=== PATIENT | female | born 1970 | race Caucasian/White ===

== ENCOUNTER → 2022-09-21 16:14 | Outpatient (BNVA) | payer BC, SELFPAY | PROVIDERS: Family Provider Nurse Practitioner Family; Visit Provider Registered Nurse Neonatal Intensive Care | DX: S69.91XA Unspecified injury of right wrist, hand and finger(s), initial encounter (principal); W19.XXXA Unspecified fall, initial encounter | CPT/HCPCS: 73110 ==

== ENCOUNTER 2023-12-09 06:56 | Outpatient (CLI) | payer BC, SELFPAY | END 2023-12-09 06:57 | disposition home or self-care (01) | LOC: LAB 06:57 | PROVIDERS: Family Provider Nurse Practitioner Family; Visit Provider Internal Medicine | DX: E16.2 Hypoglycemia, unspecified (principal) | CPT/HCPCS: 36415; 82533 ==

== ENCOUNTER 2024-01-11 10:24 | Outpatient (CLI) | payer BC, SELFPAY ==
--- NOTE | 2024-01-11 10:36 | MM_ITS ---
WS: [email or web address] VIEWS: MLO, CC, and ML views both breasts. 3D digital tomosynthesis is also included in this exam. S pot compression view with tomography of the RIGHT breast in the MLO projection was also included. Eve ast implant displacement MLO and cc views were also included. No comparisons at this time Findings: There was no sign of mass, architectural distortion or suspicious calcification in either breast. The re are scattered areas of fibroglandular density. Regional ultrasound of the upper outer quadrant of the RIGHT breast would be indicated for further work-up. MM/[place] [id number] Impression: BI-RADS: 0-Incomplete: Need additional imaging evaluation FOLLOW-UP: See Report This mammogram was also analyzed by the Computer Aided Detection System R2 Imag e Film Color Tester.
--- NOTE | 2024-01-11 10:36 | US_ITS ---
WS: [email or web address] Exam: US breast RT limited* [id number] Date/Time of Exam: 01/11/2024 11:34 AM Reason For Exam: PAIN OF R BREAST The upper outer quadrant of the RIGHT breast is targeted for ultrasound evaluation. There was no sign of suspicious mass or nodule in the upper outer quadrant. No cysts were noted. A br east implant is partially visualized. US/US breast RT limited* [id number] IMPRESSION: 1. No suspicious ultrasound finding in the upper outer quadrant of the RIGHT br east.
== END 2024-01-11 10:25 | disposition home or self-care (01) ==
LOC: RAD 10:25
PROVIDERS: Family Provider Nurse Practitioner Family; PCP Electrodiagnostic Medicine; Visit Provider Nurse Practitioner Family
DX: N64.4 Mastodynia (principal); R92.323 Mammographic fibroglandular density, bilateral breasts
CPT/HCPCS: 76642; 77062; G0279